=== PATIENT | female | born 1975 | race Caucasian/White ===

== ENCOUNTER 2025-01-18 11:01 | Emergency (ER) | payer OTHER, SELFPAY ==
--- NOTE | ~2025-01-18 | XR_ITS ---
EXAMINATION: XR hip LT 2V w AP pelvis DATE: 01/18/2025 11:32 INDICATION: Lateral left hip pain post fall 4 days prior TECHNIQUE: Anteroposterior view of the pelvis and anteroposterior, frog leg and cross-table lateral v iews of the left hip were obtained. COMPARISON: None. FINDINGS: Alignment is normal. No fracture. Mild osteoarthritis at the bilateral hip and sacroiliac joints. Mil d soft tissue swelling about the left hip with asymmetric mild bulging of the left gluteal muscle. IMPRESSION: 1. Mild bilateral hip and sacroiliac osteoarthritis. No acute osseous abnormality. Reviewed, dictated and finalized at location A. IMPRESSION: 1. Mild bilateral hip and sacroiliac osteoarthritis. No acute osseous abnormali ty.
[2025-01-18 11:17] VITALS: BP 121/90; PULSE 73; RESP 16; TEMP 36.4; O2SAT 100
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
== END 2025-01-18 12:11 | disposition home or self-care (01) ==
PROVIDERS: Emergency Provider Nurse Practitioner
DX: S70.02XA Contusion of left hip, initial encounter (principal); V09.29XA Pedestrian injured in traffic accident involving other motor vehicles, initial encounter; Y92.512 Supermarket, store or market as the place of occurrence of the external cause
CPT/HCPCS: 73502; 99213; G0463